=== PATIENT | male | born 1965 | race Caucasian/White ===

== ENCOUNTER 2018-05-23 15:08 | Emergency (ER) | payer MEDICARE ==
[~2018-05-23] VITALS: Ht 182.9 cm; Wt 106.6 kg
== END 2018-05-23 15:35 | disposition left against medical advice (07) ==
LOC: ER 15:08
DX: Z00.00 Encounter for general adult medical examination without abnormal findings (principal)
CPT/HCPCS: 36415; 82948; 99282